=== PATIENT | female | born 1990 | race Two or more races ===

== ENCOUNTER 2020-07-15 15:00 | Inpatient (IN) | payer OTHER ==
[~2020-07-15] VITALS: Ht 160 cm; Wt 73.9 kg
[2020-08-07] MEDS ORDERED: PRENATAL TABLE1 EAC3 PO (16:48)
== END 2020-08-10 12:39 | DRG 807 ==
LOC: OB/GYN 07-31 15:00 → LDR 08-07 15:54 → SURG-SUITE 08-08 10:27
PROVIDERS: ADMIT Obstetrics & Gynecology; ATTEND Obstetrics & Gynecology
PROC: 4A1HXFZ Monitoring of Products of Conception, Cardiac Rhythm, External Approach (ICD-10-PCS; 2020-08-07)
PROC: 10E0XZZ Delivery of Products of Conception, External Approach (ICD-10-PCS; principal; 2020-08-08)
PROC: 0UQGXZZ Repair Vagina, External Approach (ICD-10-PCS; 2020-08-08)
DX: O71.4 Obstetric high vaginal laceration alone (principal); Z37.0 Single live birth; Z3A.40 40 weeks gestation of pregnancy; Z20.828 Contact with and (suspected) exposure to other viral communicable diseases

== ENCOUNTER → 2020-08-03 | Outpatient (CLI) | payer OTHER ==
[~2020-08-03] MED LIST: PRENATAL TABLE1 EAC3 PO
== END | disposition home or self-care (01) ==
LOC: NST 12:18 → ER 12:18
PROVIDERS: ATTEND Obstetrics & Gynecology
DX: Z34.83 Encounter for supervision of other normal pregnancy, third trimester (principal)

== ENCOUNTER 2020-08-06 09:38 | Outpatient (CLI) | payer OTHER ==
[2020-08-07] MEDS ORDERED: PRENATAL TABLE1 EAC3 PO (16:48)
== END 2020-08-06 10:14 | disposition home or self-care (01) ==
LOC: NST 09:38
PROVIDERS: ATTEND Obstetrics & Gynecology Maternal & Fetal Medicine
DX: Z34.83 Encounter for supervision of other normal pregnancy, third trimester (principal)